=== PATIENT | female | born 2000 | race African-American/Black ===

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

== ENCOUNTER 2022-10-14 12:18 | Emergency (ER) | payer SELFPAY ==
[2022-10-14] MEDS ORDERED: Oseltamivir 75 MG CAP ONE (13:02)
== END 2022-10-14 13:06 | disposition home or self-care (01) ==
LOC: NAV ERS 12:18
DX: O98.511 Other viral diseases complicating pregnancy, first trimester (principal); J11.1 Influenza due to unidentified influenza virus with other respiratory manifestations; Z3A.12 12 weeks gestation of pregnancy
CPT/HCPCS: 87081; 87430; 87804; 99283

== ENCOUNTER 2023-06-13 23:24 | Emergency (ER) | payer OTHER ==
[2023-06-13] MEDS ORDERED: Ibuprofen 200 MG TAB ONE ×2 (23:40)
== END 2023-06-14 00:25 | disposition home or self-care (01) ==
LOC: NAV ERS 23:24
DX: U07.1 COVID-19 (principal); J06.9 Acute upper respiratory infection, unspecified
CPT/HCPCS: 87635; 87804; 99283